=== PATIENT | male | born 1980 | race Caucasian/White ===

== ENCOUNTER 2021-03-09 13:00 | Emergency (ER) | payer OTHER, SELFPAY ==
[2021-03-09 13:16] VITALS: BP 149/86; PULSE 103; RESP 16; TEMP 36.8; O2SAT 100
--- NOTE | 2021-03-09 14:05 | ED.GENADULT ---
HPI - General Adult General Chief complaint: Unspecified Stated complaint: Abdominal Pain, Back Pain Time Seen by Provider: 03/09/21 13:45 Source: patient and RN notes reviewed Mode of arrival: ambulatory Limitations: no limitations History of Present Illness HPI narrative: Patient presents today complaining of the sudden onset right lower quadrant abdominal/groin pain that started when he coughed or sneezed 4 days ago. Pain has been fairly constant since that time. Occasional radiation down the anterior thigh and foot at times. He also reports occasional radiation to the low back. States he is not tender to the testicle or scrotum. Denies numbness or tingling in the leg or foot. Denies any urinary or bowel symptoms. Pain decreases while he is standing and increases while he is sitting. He currently rates his pain 3/10 and has been taking ibuprofen without relief. He describes the pain as sharp. MD complaint: Abdominal pain Related Data Home Medications Medication Instructions Recorded Confirmed atorvastatin 10 mg PO DAILY 03/09/21 03/09/21 Allergies Allergy/AdvReac Type Severity Reaction Status Date / Time No Known Allergies Allergy Verified 03/09/21 13:47 Review of Systems Review of Systems: Narrative: CONSTITUTIONAL: Denies body aches, fever, chills, or sweats. EYES: Denies visual changes, redness, or discharge. ENT: Denies rhinorrhea, congestion, sore throat, or otalgia. CARDIOVASCULAR: Denies chest pain, palpitations, or edema. RESPIRATORY: Denies cough or dyspnea. GASTROINTESTINAL: Denies nausea, vomiting, or diarrhea. + Abdominal pain GENITOURINARY: Denies dysuria or hematuria. SKIN: Denies rash, itching, or wounds. MUSCULOSKELETAL: Denies back pain, joint pain, or myalgia. NEUROLOGIC: Denies headache, numbness, tingling, or weakness. PSYCH: Denies depression or anxiety. [facility] Family History Family History Grandparent Diabetes mellitus Social History Social History Smoking status: Current every day smoker Alcohol intake: never Comments At time of signature, I have reviewed and agree with nursing past medical, surgical, social and family history unless otherwise noted. Please see nursing chart for further information. There is no relevant family history pertinent to the presenting complaint Exam Narrative: Exam Narrative: GENERAL: Well-appearing, well-nourished, and in no acute distress. HEAD: Normocephalic, atraumatic. EYES: EOMI. No redness or drainage. Conjunctivae normal. ENT: Mucous membranes pink and moist. NECK: Normal AROM. CHEST: No respiratory distress. Clear to auscultation. HEART: Regular rate and rhythm. No murmur appreciated. Normal peripheral pulses. ABDOMEN: Soft, nondistended, normal active bowel sounds. Point right lower quadrant abdominal tenderness with rebound. + heel jar. MUSCULOSKELETAL: No bony tenderness. EXTREMITIES: Normal range of motion. No edema. SKIN: Warm, dry, no rash. Capillary refill normal. Normal skin turgor. NEURO: No focal deficits. Alert and oriented x3. Gait steady. PSYCH: Normal affect. No signs of depression or anxiety. Course Vital Signs Vital signs: Vital Signs Temperature 98.2 F 03/09/21 13:16 Pulse Rate 103 H 03/09/21 13:16 Respiratory Rate 16 03/09/21 13:16 Blood Pressure 149/86 H 03/09/21 13:16 Pulse Oximetry 100 03/09/21 13:16 Temperature 98.2 F 03/09/21 13:16 Pulse Rate 103 H 03/09/21 13:16 Respiratory Rate 16 03/09/21 13:16 Blood Pressure 149/86 H 03/09/21 13:16 Pulse Oximetry 100 03/09/21 13:16 Reviewed Transfer Transfered to: [facility] Transportation: Other (Private vehicle) Transfer rationale: Abdominal pain Accepting physician: Eliazar Medical Decision Making Differential Diagnosis Differential Diagnosis: Appendicitis, abdominal wall strain, groin strain, her
== END 2021-03-09 14:08 | disposition short-term general hospital (02) ==
PROVIDERS: Emergency Provider Nurse Practitioner; PCP Family Medicine
DX: R10.823 Right lower quadrant rebound abdominal tenderness (principal); F17.200 Nicotine dependence, unspecified, uncomplicated
CPT/HCPCS: 99212; G0463

== ENCOUNTER 2021-03-09 14:21 | Emergency (ER) | payer OTHER, SELFPAY ==
--- NOTE | ~2021-03-09 | US_ITS ---
US scrotum doppler INDICATION: Groin pain TECHNIQUE: Testicular sonogram utilizing grayscale and color Doppler FINDINGS: The testes are normal in size and appearance. No focal lesions are seen. The right testes measures 4.9 x 2.2 x 3.2 cm centimeters, and the left testis measures 4.4 x 2 x 3.3 cm cm. There is n ormal vascular flow to both testes. The right and left epididymides appear normal. There is a small right hydrocele. There are bilateral varicoceles. IMPRESSION: 1. Bilateral varicoceles. 2: Small right hydrocele. Reviewed, dictated and finalized at location A.
--- NOTE | ~2021-03-09 | CT_ITS ---
EXAMINATION: CT abdomen pelvis w con DATE: 03/09/2021 16:14 INDICATION: Right inguinal pain TECHNIQUE: Computed tomography (CT) of the abdomen and pelvis was performed with 100 cc Omnipaque 350 intravenous contrast. The dose-length product was 943.05 mGy-cm. Automated exposure control and iter ative reconstruction technique were employed. COMPARISON: None. FINDINGS: Lung bases are unremarkable. Heart size normal. No significant pleural or pericardial effus ion. Fatty infiltration of the liver. Gallbladder is present. The spleen, pancreas, adrenal glands and kid neys are unremarkable. No hydronephrosis. No evidence for hernia. Nonobstructive bowel gas pattern. C olonic diverticulosis without evidence for diverticulitis. Gallbladder is present. No lymphadenopathy . No free air. No acute osseous abnormality. IMPRESSION: 1. No acute abdominal abnormality. Reviewed, dictated and finalized at location A.
[2021-03-09 14:22] VITALS: BP 157/92; PULSE 97; RESP 18; TEMP 36.8; O2SAT 98
[2021-03-09 14:45] LABS: Add Urine Microscopic? NO; Appearance Urine Clear (Clear); Bilirubin Urine Negative (Negative); Blood Urine Negative (Negative); Color Urine Yellow (Yellow); Glucose Urine UA Negative (Negative); Ketones Urine Negative (Negative); Leukocyte Esterase Ur Negative LEU/UL (Negative); Nitrate Urine Negative (Negative); Protein Urine Negative (Negative); Urobilinogen Urine Negative mg/dL (<2.0)
[2021-03-09 15:26] LABS: Basophils Percent Auto 0.5 % (0.2-1.2); Eosinophils Absolute Auto 0.1 K/mm3 (0-0.3); Eosinophils Percent Auto 1.4 % (0-4.4); Hematocrit 42.6 % (42.0-52.0); Hemoglobin 14.8 g/dL (14.0-18.0); Immature Granulocyte Absolute 0.03 K/mm3 (0.00-0.031); Immature Granulocyte Percent A 0.4 % (0-0.5); Lymphocytes Absolute Auto 3.68 K/mm3 (0.9-3.2); Lymphocytes Percent Auto 49.9 % (18.3-44.2); Mean Corpuscular HGB Conc 34.7 g/dl (32-36); Mean Corpuscular Hemoglobin 31.1 pg (26-34); Mean Corpuscular Volume 89.5 fl (80-100); Mean Platelet Volume 9.8 fl (7.4-10.4); Monocytes Absolute Auto 0.4 K/mm3 (0.1-0.6); Monocytes Percent Auto 5.7 % (2.6-8.5); Neutrophils Absolute Auto 3.1 K/mm3 (1.3-6.7); Neutrophils Percent Auto 42.1 % (45.5-73.1); Platelet Count Result 239 k/mm3 (150-375); Red Blood Count 4.76 M/mm3 (4.6-6.20); Red Cell Distribution Width 11.9 % (11.5-14.5); White Blood Count 7.4 K/mm3 (4.5-10.0)
[2021-03-09 15:47] LABS: Alanine Aminotransferase 63 U/L (4-50); Albumin Level 4.5 g/dL (3.5-5.1); Alkaline Phosphatase 71 U/L (38-126); Anion Gap 11 mmol/L (8-16); Aspartate Amino Transferase 44 U/L (17-59); Bilirubin,Total 0.9 mg/dL (0.2-1.3); Blood Urea Nitrogen 11 mg/dL (9-20); Carbon Dioxide 25 mmol/L (22-30); Chloride 104 mmol/L (98-107); Estimated CRCL calculation 139 ml/min; Estimated Glomerular Filt Rate > 60; Glucose 90 mg/dL (75-110); Lipase 36 U/L (23-300); Potassium 3.7 mmol/L (3.4-5.0); Sodium 140 mmol/L (137-145)
--- NOTE | 2021-03-09 15:52 | ED.GENADULT ---
HPI - General Adult General Chief complaint: Abdominal Pain Stated complaint: abd pain, groin pain Time Seen by Provider: 03/09/21 14:29 Source: patient Mode of arrival: ambulatory Limitations: no limitations History of Present Illness HPI narrative: Patient presents for evaluation of right inguinal and right testicular pain. Symptom onset Thursday evening. He indicates his symptoms started after he coughed while sitting on the couch. He states he had recurrence of his symptoms since Thursday. Pain has been fairly constant since that time. Pain is worse with certain positions. He states the pain is shooting, sharp, 6 out of 10 in severity. Some able to determine whether pain is shooting for the right testicle or right groin. She denies any fever, chills, nausea, vomiting, change in bowel pattern, urinary symptoms, urethra discharge. He does note some pain in the right lower back. He was seen in urgent care just prior to arrival and they sent him here for further evaluation. Related Data Home Medications Medication Instructions Recorded Confirmed atorvastatin 10 mg PO DAILY 03/09/21 03/09/21 Allergies Allergy/AdvReac Type Severity Reaction Status Date / Time No Known Allergies Allergy Verified 03/09/21 14:31 Review of Systems Review of Systems: Narrative: CONSTITUTIONAL: Denies fever, chills, or sweats. EYES: Denies visual changes, redness, or discharge. ENT: Denies rhinorrhea, congestion, sore throat, or otalgia. CARDIOVASCULAR: Denies chest pain, palpitations, or edema. RESPIRATORY: Denies cough or dyspnea. GASTROINTESTINAL: Reports pain in the right groin. Denies nausea, vomiting, or diarrhea. GENITOURINARY: Reports right-sided testicular pain. Denies dysuria or hematuria. SKIN: Denies rash or itching. MUSCULOSKELETAL: Reports right lower back pain. Denies joint pain, or myalgia. NEUROLOGIC: Denies headache, numbness, dizziness, or weakness. PSYCHIATRIC: Denies anxiety or depression. [facility] Past Medical History Medical History (Updated 03/09/21 @ 17:34 by Anthony Hood, BRUNO, JAMA) Hyperlipidemia Surgical History Surgical History (Updated 03/09/21 @ 15:55 by BRUNO Toribio, JAMA) No pertinent past surgical history Family History Family History Grandparent Diabetes mellitus Social History Social History (Updated 03/09/21 @ 15:56 by JACINTO ToribioP, ) Smoking status: Current every day smoker Alcohol intake: never Substance use: never Living arrangements: with family Gender identity (if verbalized by the patient): Male Sexual Orientation (if Verbalized by the Patient): Straight or Heterosexual Spiritual care concerns: No Exam Narrative: Exam Narrative: GENERAL: Well-appearing, well-nourished, and in no acute distress. HEAD: Normocephalic, atraumatic. EYES: PERRLA and EOMI. ENT: Nares clear, no rhinorrhea or epistaxis. Mucous membranes moist. Oropharynx without tonsillar hypertrophy exudate or other lesions. Bilateral TMs pearly javier nonbulging NECK: Supple. No adenopathy or masses. No carotid bruits or JVD CHEST: Clear to auscultation. No respiratory distress. No wheezes rales or rhonchi HEART: Regular rate and rhythm. No murmur heard. Normal peripheral pulses. ABDOMEN: Soft, nontender, nondistended, normal active bowel sounds. No tenderness in the inguinal region BACK: No tenderness in midline or paraspinous muscles of the lumbar spine. Mild tenderness over the right SI joint : No external genital lesions. No scrotal swelling. No urethral discharge. Mild right-sided testicular tenderness EXTREMITIES: Normal range of motion. No edema. SKIN: Warm, dry, no rash. NEURO: No focal deficits. Alert and oriented x3. PSYCH: Normal mood and affect. Course Course Emergency Course: Is a 40-year-old male who presented with complaints of right inguinal and right testicular pain. CT abdomen pelvis was
[2021-03-09 16:56] VITALS: BP 148/87; PULSE 82; RESP 20; O2SAT 97
[2021-03-09 17:46] VITALS: BP 146/80; PULSE 80; RESP 20; O2SAT 99
== END 2021-03-09 17:51 | disposition home or self-care (01) ==
PROVIDERS: Emergency Provider Nurse Practitioner; PCP Family Medicine
DX: I86.1 Scrotal varices (principal); N43.3 Hydrocele, unspecified; R74.01 Elevation of levels of liver transaminase levels; F17.200 Nicotine dependence, unspecified, uncomplicated; E78.5 Hyperlipidemia, unspecified
CPT/HCPCS: 36415; 74177; 76870; 80053; 81003; 83690; 85025; 87491; 87591; 93976; 99284; Q9967

== ENCOUNTER → 2022-04-11 08:50 | Outpatient (CLI) | payer BC, SELFPAY ==
--- NOTE | ~2022-04-11 | XR_ITS ---
XR lumbar spine 2-3V DATE: 04/11/2022 09:13 INDICATION: Low back pain TECHNIQUE: AP, lateral, coned lateral lumbosacral views COMPARISON: None FINDINGS: No fracture or dislocation or spondylolisthesis. The included lower thoracic and lumbar ped icles are intact. There is slight degenerative spurring of the lumbar spine. Lumbar and lumbosacral i nterspaces are relatively well preserved. The sacroiliac joints are intact. IMPRESSION: Slight degenerative change Reviewed, dictated and finalized at location A. IMPRESSION: Slight degenerative change
== END ==
PROVIDERS: PCP Family Medicine; Visit Provider Nurse Practitioner Family
DX: M54.50 Low back pain, unspecified (principal)
CPT/HCPCS: 72100

== ENCOUNTER 2023-05-10 10:20 | Emergency (ER) | payer BC, SELFPAY ==
[2023-05-10 10:30] VITALS: BP 166/89; PULSE 110; RESP 16; O2SAT 99
[2023-05-10 10:46] VITALS: BP 166/89; PULSE 110; RESP 16; O2SAT 99
--- NOTE | 2023-05-10 11:02 | ED.EXTPRO ---
HPI - Extremity Problem General Chief complaint: Extremity Injury, Lower Stated complaint: Left Foot Pain Time Seen by Provider: 05/10/23 10:52 Source: patient and RN notes reviewed Mode of arrival: ambulatory Limitations: no limitations History of Present Illness HPI Narrative: Patient presents today complaining of left ankle pain and swelling since yesterday morning, that continue to worsen throughout the day yesterday and into last night. Denies numbness or tingling in the ankle or foot. Currently rates his pain 3/10 at rest, which increases with any weight-bearing or movement. Denies history of gout. Denies consumption of many meats, alcohol recently. Denies injury or trauma. Related Data Allergies Allergy/AdvReac Type Severity Reaction Status Date / Time No Known Allergies Allergy Verified 05/10/23 10:24 Review of Systems Review of Systems: CONSTITUTIONAL: Denies body aches, fever, chills, or sweats. EYES: Denies visual changes, redness, or discharge. ENT: Denies rhinorrhea, congestion, sore throat, or otalgia. CARDIOVASCULAR: Denies chest pain, palpitations, or edema. RESPIRATORY: Denies cough or dyspnea. GASTROINTESTINAL: Denies abdominal pain, nausea, vomiting, or diarrhea. GENITOURINARY: Denies dysuria or hematuria. SKIN: Denies rash, itching, or wounds. MUSCULOSKELETAL: Denies back pain, or myalgia. +left ankle pain NEUROLOGIC: Denies headache, numbness, tingling, or weakness. PSYCH: Denies depression or anxiety. [facility] Past Medical History Medical History BMI 29.0-29.9,adult Hyperlipidemia Surgical History Surgical History No pertinent past surgical history Family History Family History Grandparent Diabetes mellitus Father No problems noted. Mother Hyperlipidemia Sibling No problems noted. 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 Please see nursing chart for further information. There is no relevant family history pertinent to the presenting complaint Exam Narrative: GENERAL: Well-appearing, well-nourished, and in no acute distress. HEAD: Normocephalic, atraumatic. EYES: EOMI. No redness or drainage. Conjunctivae normal. ENT: Mucous membranes pink and moist. NECK: Normal AROM. CHEST: No respiratory distress. EXTREMITIES: Left ankle:tenderness to lateral ankle with mild swelling. Scant erythema. Distal sensation intact. Capillary refill normal. Pedal pulse is strong. Limited range of motion of the ankle due to pain. No tenderness to the foot. No edema to the foot. No tenderness or or edema to the lower leg. SKIN: Warm, dry, no rash. Capillary refill normal. Normal skin turgor. NEURO: No focal deficits. Alert and oriented x3. Gait steady. PSYCH: Normal affect. No signs of depression or anxiety. Course Course Level of Care: Express Care Visit Vital Signs Vital signs: Vital Signs Pulse Rate 110 H 05/10/23 10:30 Respiratory Rate 16 05/10/23 10:30 Blood Pressure 166/89 H 05/10/23 10:30 Pulse Oximetry 99 05/10/23 10:30 Oxygen Delivery Room Air 05/10/23 10:30 Pulse Rate 110 H 05/10/23 10:
== END 2023-05-10 11:13 | disposition home or self-care (01) ==
PROVIDERS: Emergency Provider Nurse Practitioner; PCP Family Medicine
DX: M10.9 Gout, unspecified (principal); M25.572 Pain in left ankle and joints of left foot; Z87.891 Personal history of nicotine dependence
CPT/HCPCS: 99213; G0463

== ENCOUNTER 2024-10-13 19:22 | Emergency (ER) | payer BC, SELFPAY ==
[2024-10-13 19:40] VITALS: BP 131/90; PULSE 95; RESP 15; TEMP 36.3; O2SAT 99
--- NOTE | 2024-10-13 19:55 | ED.EAR ---
HPI - Ear Problem General Chief complaint: Ear Stated complaint: left ear/jaw pain Time Seen by Provider: 10/13/24 19:56 Source: patient, RN notes reviewed and old records reviewed Mode of arrival: ambulatory Limitations: no limitations History of Present Illness HPI Narrative: Patient presents with complaints of 3 days of left ear pain. He reports that he had had some nasal drainage for a few days prior to the ear pain developed. He has not been taking any medications for his symptoms. He does report that he feels as though his hearing has become muffled. He denies any fevers. He denies any injury or trauma. Related Data Allergies Allergy/AdvReac Type Severity Reaction Status Date / Time No Known Allergies Allergy Verified 10/13/24 19:25 Review of Systems Review of Systems: All systems reviewed & are unremarkable except as noted in HPI and below Constitutional: Constitutional: Reports no additional constitutional complaints ENT: Reports system reviewed and no additional complaints, except as documented, Reports otalgia and Reports nasal discharge Cardiovascular: Cardiovascular: Reports no additional cardiovascular complaints Respiratory: Respiratory: Reports no additional respiratory complaints Gastrointestinal: Gastrointestinal: Reports no additional gastrointestinal complaints [facility] Past Medical History Medical History BMI 29.0-29.9,adult Gout Hyperlipidemia Surgical History Surgical History No pertinent past surgical history Family History Family History Grandparent Diabetes mellitus Father No problems noted. Mother Hyperlipidemia Sibling No problems noted. 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 There is no relevant family history pertinent to the patient complaint. Exam Const: General: cooperative, no acute distress, alert and awake Orientation/consciousness: oriented to person, oriented to place and oriented to time HENMT: Head: normal to inspection Ears: Abnormal EAC present cerumen impaction bilateral and TM abnormal bulging on the left and erythematous on the left Resp: Effort & Inspection: normal respiratory effort and able to speak in complete sentences Auscultation: clear to auscultation bilaterally, no crackles, no rales, no rhonchi and no wheezes Cardio: Palpation: normal PMI Rate: regular rate Rhythm: regular rhythm Heart sounds: S1 normal heart sound present and S2 normal heart sound present Neuro: General: oriented to person, oriented to place and oriented to time Cranial nerves: Yes CN's II-XII intact bilaterally Psych: Appearance: grossly normal Thought process: Normal thought process present Insight: Good insight present (Psych) Judgement: Good judgement present (Psych) Course Course Level of Care: Express Care Visit Vital Signs Vital signs: Vital Signs Temperature 97.4 F L 10/13/24 19:40 Pulse Rate 95 10/13/24 19:40 Respiratory Rate 15 10/13/24 19:40 Blood Pressure 131/90 10/13/24 19:40 Pulse Oximetry 99 10/13/24 19:40 Oxygen Delivery Room Air 10/13/24 19:40 Temperature 97.4 F L 10/13/24 19:40 Pulse Rate 95 10/13/24 19:40 Respiratory Rate 15 10/13/24 19:40 Blood Pressure 131/90 10/13/24 19:40 Pulse Oximetry 99 10/13/24 19:40 Oxygen Delivery Room Air 10/13/24 19:40 Reviewed Procedures Ear Wax Removal Left Ear: Ear Wax Removal Date: 10/13/24 Ear Wax Removal Time: 19:55 Results: Re-examined: some cerumen remains TM Examination: TM(s) erythematous Ear Canal Exam: atraumatic Patient Tolerated Procedure: well Complications: no problems Technique: ear canal curetted Medical Decision Making MDM Narrative Medical decision making narrative: Bilateral cerumen impactions, left ear disimpacted with current, patient tolerated procedure well, no trauma. TM was found to be erythematous and bulging. Treat his otitis media. Patient counseled on how to remove cerumen from the other ear at home. Verbalizes understanding of same. He is nontoxic appearing, stable for discharge home. Discharge instructions reviewed with patient, as well as provided in writing per nursing staff. The instructions also include specific and strict return/GO TO THE ER as well as f/u information. All questions have been answered, and the patient deny any further questions with discharge and discharge plan. Some parts of this dictation were generated by voice recognition software and may contain typographical and/or grammatical inaccuracies. Differential Diagnosis Differential Diagnosis: Cerumen impaction, otitis media, otitis externa Vital Signs Vital Signs: Vital Signs Temperature 97.4 F L 10/13/24 19:40 Pulse Rate 95 10/13/24 19:40 Respiratory Rate 15 10/13/24 19:40 Blood Pressure 131/90 10/13/24 19:40 Pulse Oximetry 99 10/13/24 19:40 Oxygen Delivery Room Air 10/13/24 19:40 Temperature 97.4 F L 10/13/24 19:40 Pulse Rate 95 10/13/24 19:40 Respiratory Rate 15 10/13/24 19:40 Blood Pressure 131/90 10/13/24 19:40 Pulse Oximetry 99 10/13/24 19:40 Oxygen Delivery Room Air 10/13/24 19:40 reviewed Lab Data Lab results reviewed: Yes I reviewed the patient's lab results. Lab results narrative: reviewed Discharge Plan Discharge Clinical Impression: Bilateral impacted cerumen Otitis media Qualifiers: Otitis media type: suppurative Chronicity: acute Laterality: left Recurrence: not specified as recurrent Spontaneous tympanic membrane rupture: without spontaneous rupture Qualified Code(s): H66.002 - Acute suppurative otitis media without spontaneous rupture of ear drum, left ear Patient Disposition: Home, Self-Care Condition: Stable Instructions: Antibiotic Form, Earache (ED) Additional Instructions: Follow-up with primary care provider. Emergency department for new or worsening symptoms. Do not use Debrox in left ear until you have completed antibiotic treatment Patient Language: Martiniquais Prescriptions: New amoxicillin-pot clavulanate 875-125 mg tablet 1 tablet PO Q12H Qty: 20 0RF Ear Wax Removal Kit 6.5 % drops 5 drp RIGHT EAR Q12H 4 Days Qty: 15 1RF Rx Instructions: May use on left ear after antibiotic therapy complete Follow-up/Referrals: Isaías Bailey MD [Primary Care Provider] -
== END 2024-10-13 20:16 | disposition home or self-care (01) ==
PROVIDERS: Emergency Provider Nurse Practitioner Family; PCP Family Medicine
DX: H66.002 Acute suppurative otitis media without spontaneous rupture of ear drum, left ear (principal); H61.23 Impacted cerumen, bilateral; Z87.891 Personal history of nicotine dependence; E78.5 Hyperlipidemia, unspecified; M10.9 Gout, unspecified
CPT/HCPCS: 69210; 99213; G0463

== ENCOUNTER 2025-04-03 10:06 | Outpatient (CLI) | payer BC, SELFPAY ==
--- NOTE | 2025-04-03 10:15 | ECG_ITS ---
Test Date: 2025-04-03 10:23:06 Measurements Intervals [place] Rate: 91 P: 59 IN: 157 QRS: 43 QRSD: 106 T: 43 QT: 339 QTc: 418 Interpretive Statements SINUS RHYTHM MINIMAL Q WAVES- INFERIOR LEADS BASELINE ARTIFACT- I, II, III, AVR, AVL, AVF BORDERLINE ECG No previous ECG available for comparison Electronically Signed On 04-03-2025 10:59:47 CDT by Nasim Osorio D.O.
--- OUTSIDE RECORDS SUMMARY | 2025-04-03 10:29 | XMS_ITS | Clinical Summary ---
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 This disclosure is being madepursuant to the Care Everywhere program and may not contain all information available regarding this patient. Last updated 18.[facility] Allergies No known active allergies Medications * Be aware that medications may not be up to date on this document. Alwaysverify current medications with the patient. cephALEXin (KEFLEX) 500 MG capsule Take 1 Cap by mouth 3 times daily. 30 Cap 0 05/28/2012 Active Active Problems No known active problems Immunizations Immunization Administration Dates Next Due TDAP (7yrs+) 05/28/2012 Social History Tobacco Use Types Packs/Day Years Used Date Smoking Tobacco: Every Day Alcohol Use Standard Drinks/Week Comments Not Asked 0 (1 standard drink = 0.6 oz pur e alcohol) Sex and Gender Information Value Date Recorded Sex Assigned at Not on file Legal Sex Male 2:12 PM [employer] Gender Identity Not on file Sexual Orientation Not on file Last Filed Vital Signs Vital Sign Reading Time Taken Comments Blood Pressure 140/80 05/28/2012 9:48 AM CDT Pulse 60 05/28/2012 9:48 AM CDT Temperature 36.7 C (98.1 F) 05/28/2012 9:48 AM CDT Respiratory Rate 12 05/28/2012 9:48 AM CDT Oxygen Saturation - - Inhaled Oxygen Concentration - - Weight 90.7 kg (200 lb) 05/28/2012 9:48 AM CDT Height 188 cm (6' 2) 05/28/2012 9:48 AM CDT Body Mass Index 25.68 05/28/2012 9:48 AM CDT Plan of Treatment Health Maintenance Due Date Last Done Comments COLOGUARD (AGES 45-75) - COL ON CA SCREENING 1979 COLON MONITORING 1979 COLONOSCOPY - COLON CA SCREENING 1979 CT COLONOGRAPHY - COLON CA SCREENING 1979 Colorectal Cancer Screening 1979 FIT - COLON CA SCREENING 1979 FLEX SIG - COLON CA SCREENING 1979 LIPID TESTING 1979 HIV SCREENING 1994 HEPATITIS C SCREENING 03/31/1997 HEPATITIS B VACCINE (1 of 3 - 19+ 3-dose series) 1998 HPV VACCINE (1 - 3-dose SCDM series) 2006 DTAP/TDAP/TD VACCINES (2 - T d or Tdap) 05/28/2022 05/28/2012 COVID-19 VACCINE (1 - 2023-2 5 season) 2024 DEPRESSION SCREENING 08/31/2024 INFLUENZA VACCINE (#1) 2025 ZOSTER VACCINE (1 of 2) 2029 HIB VACCINE Aged Out No longer eligi ble based on patient's age to complete this topic MENINGOCOCCAL (Group B) VACC INE SHARED DECISION-MAKING Aged Out No longer eligibl e based on patient's age to complete this topic MENINGOCOCCAL GROUPS A/C/Y/W VACCINE Aged Out No longer eligible b ased on patient's age to complete this topic PNEUMOCOCCAL VACCINE Aged Out No long er eligible based on patient's age to complete this topic Insurance [employer]
--- OUTSIDE RECORDS SUMMARY | 2025-04-03 10:29 | XMS_ITS | Encounter Summary ---
Author Organization [facility] Address [address] [place] [id number] Care Team Providers Care Elevator Inspector Name Role Phone Ken Leon MD Primary Care Provider Balaji escamilla Encounter Details Date Type Department Care Team (Late st Contact Info) Description 03/07/2003 Abstract [facility] Conversion Md, Generic Conversion, Social History Tobacco Use Types Packs/Day Years Used Date Smoking Tobacco: Never Assessed Sex and Gender Information Value Date Recorded Sex Assigned at Not on file Legal Sex Male 8:09 PM CDT Gender Identity Not on file Sexual Orientation Not on file documented as of this encounter Plan of Treatment Not on file documented as of this encounter Visit Diagnoses Not on filedocumented in this encounter Care Teams Elevator Inspector Relationship Specialty Start Date End Date Ken Leon MD PCP - General 07/08/11 documented as of this encounter
--- OUTSIDE RECORDS SUMMARY | 2025-04-03 10:29 | XMS_ITS | Clinical Summary ---
Author Organization [facility] Address [address] [place] [id number] Care Team Providers Care Shearing Machine Feeder Name Role Phone Ken Leon MD Primary Care Provider Balaji escamilla Social History Tobacco Use Types Packs/Day Years Used Date Smoking Tobacco: Never Assessed Sex and Gender Information Value Date Recorded Sex Assigned at Not on file Legal Sex Male 8:09 PM CDT Gender Identity Not on file Sexual Orientation Not on file Plan of Treatment Health Maintenance Due Date Last Done Comments Colorectal Cancer Screening Colonoscopy (10 Years) 1979 Annual Physical 1982 Hepatitis C 1997 DTaP, Tdap and Td Vaccines ( 4 - Tdap) 1998 1979, 1979, 1979 Hepatitis B Vaccines (1 of 3 - 19+ 3-dose series) 1998 HPV Vaccines (1 - 3-dose SCD M series) 2006 COVID-19 Vaccine ( - 2023-2 5 season) 2024 Meningococcal B Vaccine Aged Out No l onger eligible based on patient's age to complete this topic Meningococcal Vaccine Aged Out No josé luis shira eligible based on patient's age to complete this topic Pneumococcal Vaccine: Pediatrics (0 to 5 Years) and At-Risk Patients (6 to 49 Years) Aged Out No longer eligible b ased on patient's age to complete this topic RSV Immunizations Under 20 Months Aged Out No longer eligible b ased on patient's age to complete this topic Care Teams Shearing Machine Feeder Relationship Specialty Start Date End Date Ken Leon MD PCP - General 07/08/11
== END 2025-04-03 10:07 | disposition home or self-care (01) ==
LOC: ANHCARD 10:08
PROVIDERS: PCP Family Medicine; Visit Provider Family Medicine
DX: R00.0 Tachycardia, unspecified (principal); R94.31 Abnormal electrocardiogram [ECG] [EKG]
CPT/HCPCS: 93005

== ENCOUNTER 2025-05-07 14:33 | Emergency (ER) | payer BC, SELFPAY ==
[2025-05-07 14:41] VITALS: BP 150/91; PULSE 89; RESP 20; TEMP 36.7; O2SAT 99
--- NOTE | 2025-05-07 15:02 | ED_ITS ---
HPI - Headache General Chief Complaint: Upper Respiratory Infection Stated Complaint: numbness in teeth patient presents to the [facility] with complaints numbness feeling from right middle teeth, upper right side of lip and cheek, across to right ear that began 2 days ago. Patient also notes intermittent sharp shooting pain through this area up toward his eye and into forehead. Patient noted earlier this week was having worsening symptoms with nasal congestion, thick green drainage and generalized headaches bleeding he had a sinus infection contacted his primary care physician and was placed on azithromycin which he has taken and these symptoms have all resolved. Denies any fall, trauma, or head injury. Patient does report having shingles in the past on the right side of his head, This was mostly centered in the back of his head and had significant rash with minimal itching burning type pain. denies vision changes, hearing changes, dizziness, chest pain, facial droop, or rash. Related Data Allergies Allergy/AdvReac Type Severity Reaction Status Date / Time No Known Allergies Allergy Verified 05/07/25 14:39 Review of Systems Constitutional: Constitutional: Reports as per HPI, Denies chills, Denies fatigue, Denies fever(s) and Denies weakness Eyes: Eyes: Reports as per HPI, Denies change in vision and Denies photophobia Comments: Watering right eye ENT: Reports as per HPI, Denies vertigo, Denies dizziness, Denies nasal congestion and Denies sore throat Comments: sinus pain, numbness right cheek, Cardiovascular: Cardiovascular: Reports as per HPI, Denies chest pain, Denies rapid heart rate, Denies radiating jaw, neck or arm pain and Denies slow heart rate Respiratory: Respiratory: Reports as per HPI, Denies chest congestion, Denies cough, Denies dyspnea and Denies wheezing Gastrointestinal: Gastrointestinal: Reports no additional gastrointestinal complaints Genitourinary: Genitourinary: Reports no additional male genitourinary complaints Musculoskeletal: Musculoskeletal: Reports as per HPI, Denies myalgias, Denies arthralgias, Denies joint swelling and Denies muscle cramps Integumentary/Breasts: Skin/Breast: Reports as per HPI, Denies pruritus, Denies erythema, Denies rash and Denies skin ulcer Neurologic: Reports as per HPI, Reports headache(s), Denies focal weakness, Reports numbness and Denies weakness Psychiatric: Psychiatric: Reports no additional psychiatric complaints Endocrine: Endocrine: Reports no additional endocrine complaints Hematologic/Lymphatic: Hematologic/Lymphatic: Reports no additional hematologic/lymphatic complaints Allergic/Immunologic: Allergic/Immunologic: Reports no additional allergic/immunologic complaints [facility] Past Medical History Medical History Shingles Gout BMI 29.0-29.9,adult Hyperlipidemia Surgical History Surgical History No pertinent past surgical history Family History Family History Grandparent Diabetes mellitus Father No problems noted. Mother Hyperlipidemia Sibling No problems noted. 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 Gender identity (if verbalized by the patient): Male Sexual Orientation (if Verbalized by the Patient): Straight or Heterosexual Spiritual care concerns: No Exam Const: General: healthy appearing and no acute distress Nutritional Appearance: well nourished Orientation/consciousness: patient oriented x3 Limitations: no limitations HENMT: Head: normal to inspection Ears: external ears normal and TM's normal bilaterally Face/Nose/Sinus: Normal external nose present Face and sinus: normal facial exam Mouth: Yes Normal oral and palatal mucosa present, Yes lip normal and Yes moist mucous membranes abnormal Teeth and gingiva: dentition normal Throat: posterior oropharynx normal Eyes: Conjunctivae: conjunctivae normal Pupils: Equal, round and reactive pupils present EOM: EOMs intact bilaterally Direct Ophthalmoscopy: no photophobia Neck: Neck: normal visual inspection and no lymphadenopathy Resp: Effort & Inspection: normal respiratory effort Auscultation: clear to auscultation bilaterally Cardio: Rate: regular rate Rhythm: regular rhythm Skin: General skin exam: normal color Rashes: no rashes Wounds: no wounds Neuro: General: patient oriented x3, moves all extremities, no meningeal signs, no focal motor deficits and CN's II-XI intact bilaterally Cranial nerves: Yes Nystagmus not present Speech: normal speech Gait exam (Neuro): Normal gait present Other: no facial drooping, bilateral eyes able to close completely, symmetrical ey ebrow raise, symmetrical cheek puff out, symmetrical smile Extrem: General: normal to inspection, no clubbing, cyanosis or edema and no pedal edema Psych: Mental Status: mental status grossly normal Affect: normal affect Attitude: cooperative Course Course Level of Care: Express Care Visit Vital Signs Vital signs: Vital Signs Temperature 98.0 F 05/07/25 14:41 Pulse Rate 89 05/07/25 14:41 Respiratory Rate 20 05/07/25 14:41 Blood Pressure 150/91 H 05/07/25 14:41 Pulse Oximetry 99 05/07/25 14:41 Oxygen Delivery Room Air 05/07/25 14:41 Temperature 98.0 F 05/07/25 14:41 Pulse Rate 89 05/07/25 14:41 Respiratory Rate 20 05/07/25 14:41 Blood Pressure 150/91 H 05/07/25 14:41 Pulse Oximetry 99 05/07/25 14:41 Oxygen Delivery Room Air 05/07/25 14:41 MDM - Headache MDM Narrative Medical decision making narrative: spoke with patient about overall symptoms questionable shingles versus trigeminal neuralgia versus possible Yadav's palsy. At this time will place patient on medications and high-dose steroids spoke about new symptoms that would need immediate evaluation in the emergency room. The patient was evaluated by myself in the [facility] care. History is obtained from patient who is an independent historian and physical exam was performed. Available medical records were reviewed at this time. Exam findings show no acute concerns or changes; patient is non-toxic appearing and is in no distress. Patient is appropriate for outpatient treatment and follow-up. I have evaluated and discussed social determinants of health with the patient that could potentially impact subsequent diagnosis and treatment plans. Differential diagnosis and treatment plan were discussed with the patient. Patient agrees with discussion and after shared medical decision making agrees with plan of care. All questions were answered to the patient's satisfaction. Differential Diagnosis Differential diagnosis: Likely migraine, tension headache, headache and sinusitis Medical Records Attestation: I reviewed the patient's medical records. Discharge Plan Discharge Clinical Impression: Facial paresthesia, Head and face pain Patient Disposition: Home Condition: Stable Instructions: Antibiotic Form, Shingles (ED), Yadav Palsy (ED), Trigeminal Neuralgia (ED) Patient Language: Bengali Prescriptions: New prednisone 20 mg tablet 60 mg PO DAILY Qty: 15 0RF acyclovir 800 mg tablet 800 mg PO TID Qty: 21 0RF methocarbamol 750 mg tablet 750 mg PO TID Qty: 30 0RF No Action azithromycin 250 mg tablet See Rx Instructions PO .COMPLEX Qty: 6 0RF Rx Instructions: For 250 mg dose pack: take 500 mg today (day 1), then 250 mg for 4 days (days 2-5) PO Follow-up/Referrals: Isaías Bailey MD [Primary Care Provider, [facility]] Time of Disposition: 15:05
== END 2025-05-07 15:08 | disposition home or self-care (01) ==
PROVIDERS: Emergency Provider Nurse Practitioner Family; PCP Family Medicine
DX: R20.2 Paresthesia of skin (principal); Z87.891 Personal history of nicotine dependence; E78.5 Hyperlipidemia, unspecified; M10.9 Gout, unspecified
CPT/HCPCS: 99213; G0463